=== PATIENT | male | born 1975 | race Caucasian/White ===

== ENCOUNTER 2018-01-30 21:03 | Emergency (ER) | payer MEDICAID ==
--- NOTE | 2018-01-30 22:26 | EDM.PDOCBH ---
ED HPI GENERAL MEDICAL PROBLEM - General Chief Complaint: Behavioral/Psych Stated Complaint: MED [facility] Time Seen by Provider: 01/30/18 21:36 Source of Information: Reports: Patient History Limitations: Reports: No Limitations - History of Present Illness INITIAL COMMENTS - FREE TEXT/NARRATIVE: 42 yo presents via EMS. He self presented to the [facility] office with complains of being followed. He is not from this area. He has not been taking his medications. He currently reports a pressure in his head that he thinks is a device. This pressure increases when he is around someone whom is angry. He denies being suicidal or homicidal. He refuses to tell me if he is having hallucinations. He does have established care with psychotherapist in the [facility] area but does not believe he can get in to see this person. He does not feel safe in the community because "they are following me" "I am getting the message that they don't want me here" pt states he knows no one in the area - Related Data Allergies Allergy/AdvReac Type Severity Reaction Status Date / Time No Known Allergies Allergy Verified 01/30/18 21:07 Home Meds: Home Meds Albuterol [Ventolin HFA] 1 - 2 puff IH ASDIRECTED PRN 01/30/18 [History] Amitriptyline [Elavil] 1 - 2 tab PO BEDTIME PRN 01/30/18 [History] Armodafinil 250 mg PO DAILY 01/30/18 [History] Calcium Carbonate [Tums Ultra Strength] 1,177 mg PO ASDIRECTED PRN 01/30/18 [ History] Cyclobenzaprine HCl 5 mg PO TID PRN 01/30/18 [History] DULoxetine [Cymbalta] 60 mg PO BID 01/30/18 [History] Gabapentin [Neurontin] 300 mg PO BEDTIME 01/30/18 [History] Lubiprostone [Amitiza] 24 mcg PO BIDMEALS 01/30/18 [History] Modafinil 1 - 2 tab PO DAILY PRN 01/30/18 [History] Polyethylene Glycol 3350 [MiraLAX] 17 gm PO DAILY 01/30/18 [History] Sildenafil Citrate [Sildenafil] 100 mg PO ASDIRECTED PRN 01/30/18 [History] Topiramate 100 mg PO BID 01/30/18 [History] Zonisamide 25 mg PO BEDTIME 01/30/18 [History] oxyCODONE HCl/Acetaminophen [Percocet 10-325 mg Tablet] 1 - 2 tab PO BID PRN [History] Past Medical History Respiratory History: Reports: Asthma Musculoskeletal History: Reports: Back Pain, Chronic Neurological History: Reports: Migraines Psychiatric History: Reports: Depression, Schizophrenia ED ROS GENERAL - Review of Systems Review Of Systems: See Below Constitutional: Denies: Fever, Chills Respiratory: Denies: Shortness of Breath Cardiovascular: Denies: Chest Pain GI/Abdominal: Denies: Abdominal Pain ED EXAM, BEHAVIORAL HEALTH - Physical Exam Exam: See Below Exam Limited By: No Limitations General Appearance: Alert, WD/WN, No Apparent Distress Eye Exam: Bilateral Eye: PERRL Head: Atraumatic, Normocephalic Respiratory/Chest: No Respiratory Distress, Lungs Clear, Normal Breath Sounds, No Accessory Muscle Use, Chest Non-Tender. No: Rhonchi, Wheezing Cardiovascular: Regular Rate, Rhythm, No Edema, No Murmur GI/Abdominal: Soft, Non-Tender Neurological: Alert, Normal Mood/Affect Psychiatric: Alert, Depressed Mood, Flat Affect, Flight of Ideas, Auditory Hallucinations, Visual Hallucinations. No: Suicidal Plan, Suicidal Thoughts Skin Exam: Warm, Dry, Intact COURSE, BEHAVIORAL HEALTH COMP - Course Orders, Labs, Meds: Laboratory Tests 01/30/18 Range/Units 21:38 Urine Opiates Screen Negative (NEGATIVE) Ur Oxycodone Screen Presumptive positive H (NEGATIVE) Urine Methadone Screen Negative (NEGATIVE) Ur Propoxyphene Screen Negative (NEGATIVE) Ur Barbiturates Screen Negative (NEGATIVE) Ur Tricyclics Screen Presumptive positive H (NEGATIVE) Ur Phencyclidine Scrn Negative (NEGATIVE) Ur Amphetamine Screen Negative (NEGATIVE) U Methamphetamines Scrn Negative (NEGATIVE) Urine MDMA Screen Negative (NEGATIVE) U Benzodiazepines Scrn Negative (NEGATIVE) U Cocaine Metab Screen Negative (NEGATIVE) U Marijuana (THC) Screen Negative (NEGATIVE) Re-Assessment/Re-Exam: pt does not feel safe in the community and would like to be evaluated and stabilized Departure - Departure Time of Disposition: 22:27 Disposition: DC/Tfer to Psych Hosp/Unit [facility] Condition: Fair Clinical Impression: Hallucinations, Paranoia (psychosis) - Discharge Information *PRESCRIPTION DRUG MONITORING PROGRAM REVIEWED*: Yes *COPY OF PRESCRIPTION DRUG MONITORING REPORT IN PATIENT BEKA: No Referrals: PCP,None [Primary Care Provider] -
[2018-01-30 23:17] LABS: ACETAMINOPHEN < 2.0 ug/mL (10.0-30.0)
== END 2018-01-31 00:19 ==
LOC: JP.ED 21:03
DX: F22 Delusional disorders (principal)
CPT/HCPCS: 36415; 80053; 80305; 85025; 99285; G0480